=== PATIENT | female | born 1980 | race Two or more races ===

== ENCOUNTER 2017-10-13 14:03 | Emergency (ER) | payer OTHER ==
[2017-10-13 16:22] LABS: ABS Basophils 0.1 10^3/ul (0-0.2); ABS Eosinophils 0.2 10^3/ul (0-0.6); ABS Lymphocytes 2.2 10^3/ul (1.0-4.8); ABS Monocytes 0.4 10^3/ul (0-0.8); ABS Nucleated RBC 0 10^3/ul; Eosinophil % 3.9 % (0-6); Hematocrit 38 % (35-47); Hemoglobin 12.4 g/dl (12.0-16.0); Lymphocyte % 37.8 % (25-47); Mean Corpuscular HGB Conc 32 g/dl (31-36); Mean Corpuscular Hemoglobin 26 pg (27-31); Mean Corpuscular Volume 81 fL (80-97); Mean Platelet Volume 8.2 um3 (7.4-10.4); Nucleated Red Blood Cells % 0.1; Platelet Count 212 10^3/ul (150-450); Red Blood Count 4.74 10^6/ul (4.00-5.40); Red Cell Distribution Width 15 % (10.5-15); White Blood Count 5.9 10^3/ul (3.5-10.8)
--- NOTE | 2017-10-13 16:22 | ED ---
Abdominal Pain/Female - HPI Summary HPI Summary: This is pedro Saez documenting for attending Charles Bai MD. This patient is a 37 year old F presenting to ED with a chief complaint of L- sided abdominal pain since 1 week ago. The patient rates the pain 8-9/10 in severity. Symptoms aggravated by nothing. Symptoms alleviated by nothing. Patient reports frequent urination. Patient denies dysuria and N/V. The patient went to [facility] and they said they were not sure what the pain was due to but wanted her to come to the ED to r/o ovarian cyst. LMP was September 26, 2017. - History of Current Complaint Chief Complaint: EDAbdPain Stated Complaint: ABD PAIN Time Seen by Provider: 10/13/17 15:28 Hx Obtained From: Patient Onset/Duration: Sudden Onset, Lasting Weeks - 1 week ago, Still Present Timing: Constant - since 1 week ago Severity Initially: Severe - 8-9/10 Severity Currently: Severe - 8-9/10 Pain Intensity: 8 Pain Scale Used: 0-10 Numeric Location: Other - L-sided abdominal pain Aggravating Factor(s): Nothing Alleviating Factor(s): Nothing Associated Signs and Symptoms: Positive: Other: - Patient reports frequent urination. Patient denies dysuria and N/V. Allergies/Adverse Reactions: Allergies Allergy/AdvReac Type Severity Reaction Status Date / Time No Known Allergies Allergy Verified 10/13/17 15:49 PMH/Surg Hx/FS Hx/Imm Hx Endocrine/Hematology History: Denies: Hx Diabetes Cardiovascular History: Denies: Hx Coronary Artery Disease, Hx Hypertension GI History: Reports: Other GI Disorders - denies hx of constipation Infectious Disease History: No Infectious Disease History: Denies: Traveled Outside the [place] in Last 30 Days - Family History Known Family History: Negative: Cardiac Disease, Hypertension, Diabetes - Social History Alcohol Use: None Substance Use Type: Reports: None Smoking Status (MU): Never Smoked Tobacco Review of Systems Positive: Abdominal Pain - L-sided abdominal pain. Negative: Vomiting, Nausea Positive: frequency. Negative: dysuria All Other Systems Reviewed And Are Negative: Yes Physical Exam - Summary Physical Exam Summary: VITAL SIGNS: Reviewed. GENERAL: Patient is a well-developed and nourished female who is lying comfortable in the stretcher. Patient is not in any acute respiratory distress. HEAD AND FACE: Normocephalic and atraumatic. EYES: PERRLA, EOMI x 2, No injected conjunctiva. EARS: Hearing grossly intact. Ear canals and tympanic membranes are WNL. MOUTH: Oropharynx within normal limits. NECK: Supple, trachea is midline, no adenopathy, no JVD. CHEST: Symmetric, no tenderness at palpation LUNGS: Clear to auscultation bilaterally. No wheezing or crackles. CVS: RRR, S1 and S2 present, no murmurs or gallops appreciated. ABDOMEN: Soft, L pelvic tenderness, LLQ tenderness. No signs of distention. Positive bowel sounds. No rebound no guarding, and no masses palpated. No abdominal bruit or pulsations. EXTREMITIES: FROM in all major joints, no edema, no cyanosis or clubbing. NEURO: Alert and oriented x 3. No acute neurological deficits. Speech is normal. SKIN: Dry and warm Triage Information Reviewed: Yes Vital Signs On Initial Exam: Initial Vitals Temp Pulse Resp BP Pulse Ox 97.3 F 59 16 120/77 98 10/13/17 14:06 10/13/17 14:06 10/13/17 14:06 10/13/17 14:06 10/13/17 14:06 Vital Signs Reviewed: Yes Diagnostics - Vital Signs Vital Signs Temp Pulse Resp BP Pulse Ox 10/13/17 14:06 97.3 F 59 16 120/77 98 - Laboratory Result Diagrams: 10/13/17 16:06 10/13/17 16:06 Lab Statement: Any lab studies that have been ordered have been reviewed, and results considered in the medical decision making process. - Ultrasound No standard instances Ultrasound Interpretation Completed By: Radiologist - US Transvaginal reveals 1. Small uterine fibroid measuring 1.4 cm in greatest dimension. 2. Bilateral ovarian follicles, complex on the right. Follow-up ultrasound can be acquired in 6 weeks to ascertain resolution. 3. Small amount of endocervical fluid as well as free fluid in the cul-de-sac which is not necessarily pathologic in a woman of reproductive age. Please correlate to stage of menstruation. ED physician has reviewed this radiology report. ED physician has reviewed this radiology report. Re-Evaluation - Re-Evaluation First Eval Re-Evaluation Time: 17:43 Comment: The patient doesn't want a CT scan. Abdominal Pain Fem Course/Dx - Course Course Of Treatment: This patient is a 37-year-old female who presents to the emergency department after she was transferred from primary care physicians office from [place] with a chief complaint of left lower quadrant pain that pelvic pain. The primary care physician had done a pelvic exam and she thinks that the patient has a left ovarian cyst. Therefore the patient was sent for a transvaginal ultrasound. Blood work without any significant abnormality. Urinalysis is negative for UTI. Transvaginal ultrasound impression: Small uterine fibroid measuring 1.4 cm in the greatest dimension. Bilateral ovarian follicles, compress on the right. Follow-up ultrasound to be applied to 6 weeks to a certain social situation. Is more amount of endocervical fluid as well as free fluid in the cul-de-sac which is not necessarily pathologic in a woman of reproductive age. The patient was given Toradol for pain. At this time the patient pain has improved however not completely. Therefore I offered the patient and abdominal pelvic CT to rule out any type of diverticulitis or any abdominal pathology. The patient declined. The patient refused because she was feeling better and she has to finish work, presentation. Therefore the patient was to be discharged home and if the patient worsen she will return to the emergency room for further workup and management. At this point the patient s hemoglobin after stable alert and oriented 3. - Diagnoses Differential Diagnosis: Positive: Other - abdominal pain Provider Diagnoses: Lower abdominal pain Discharge - Sign-Out/Discharge Documenting (check all that apply): Patient Departure - Discharge Plan Condition: Stable Disposition: HOME Prescriptions: Naproxen [Naproxen 500 mg tab] 500 mg PO BID PRN #30 tablet.dr MOYA Reason: Pain Patient Education Materials: Abdominal Pain (ED) Referrals: Care [facility] [Outside] - 3 Days Additional Instructions: RETURN TO THE ED FOR ANY WORSENING OR NEW SYMPTOMS. - Billing Disposition and Condition Condition: STABLE Disposition: Home
[2017-10-13 16:34] LABS: EGFR Non-African American 88.3 (>60)
--- NOTE | 2017-10-13 17:29 | RAD ---
INDICATION: 1 week of left pelvic pain COMPARISON: None. TECHNIQUE: Real-time transabdominal and transvaginal ultrasound examination of the female pelvis including grayscale and Doppler color flow imaging. FINDINGS: Uterus: The uterus measures 7.4 x 4.0 x 4.8 cm. The endometrial stripe measures 12 mm in thickness. At the mid-level left of midline uterus there is a hypoechoic well-circumscribed structure measuring 1.4 x 1.0 x 1.3 cm most consistent with a uterine fibroid. Ovaries: The right and left ovary measure 2.8 x 2.4 x 2.5 cm and 4.5 x 3.0 x 3.6 cm, respectively. Normal arterial and venous waveforms are identified. At the right ovary there is a echogenically heterogeneous, partially cystic and minimally vascular structure measuring 1.8 x 1.3 x 1.7 cm. In the left ovary there is an anechoic avascular structure measuring 3.4 x 2.8 x 3.0 cm. There is moderate amount of free fluid in the cul-de-sac. IMPRESSION: 1. Small uterine fibroid measuring 1.4 cm in greatest dimension. 2. Bilateral ovarian follicles, complex on the right. Follow-up ultrasound can be acquired in 6 weeks to ascertain resolution. 3. Small amount of endocervical fluid as well as free fluid in the cul-de-sac which is not necessarily pathologic in a woman of reproductive age. Please correlate to stage of menstruation.
[2017-10-13] MEDS ORDERED: Ketorolac INJ* 30 MG/ML 1 ML VIAL IV PUSH ONE (17:38)
[2017-10-13] MEDS ORDERED: Ketorolac INJ* 60 MG/2 ML VIAL IM ONE (17:46)
[2017-10-13 17:56] LABS: Urine Appearance Clear; Urine Blood Negative (Negative); Urine Color Straw; Urine Ketones Negative (Negative); Urine Protein Negative (Negative); Urine Specific Gravity 1.006 (1.010-1.030); Urine Urobilinogen Negative (Negative)
[2017-10-13 18:34] VITALS: BP 106/69
== END 2017-10-13 18:33 | disposition home or self-care (01) ==
LOC: ED 14:03
DX: R10.32 Left lower quadrant pain (principal); D25.9 Leiomyoma of uterus, unspecified; N83.02 Follicular cyst of left ovary; N83.01 Follicular cyst of right ovary
CPT/HCPCS: 36415; 76830; 80053; 81003; 84702; 85025; 86140; 96372; 99282; J1885